=== PATIENT | female | born 1990 | race Hispanic/Latino ===

== ENCOUNTER 2022-05-19 21:56 | Emergency (ER) | payer SELFPAY ==
[2022-05-19] MEDS ORDERED: Ondansetron ODT 4 MG TAB ONE (22:47)
== END 2022-05-19 23:07 | disposition home or self-care (01) ==
LOC: MADERS 21:56
DX: O99.512 Diseases of the respiratory system complicating pregnancy, second trimester (principal); J20.9 Acute bronchitis, unspecified; J06.9 Acute upper respiratory infection, unspecified; O99.891 Other specified diseases and conditions complicating pregnancy; R11.0 Nausea; Z3A.18 18 weeks gestation of pregnancy
CPT/HCPCS: 99283; Q0162

== ENCOUNTER 2022-07-25 00:47 | Emergency (ER) | payer SELFPAY ==
[2022-07-25 01:35] LABS: Bilirubin Negative (Negative); Blood, Urine Small (Negative); Clarity Cloudy (Clear); Glucose, Urine (Dipstick) Negative (Negative); Ketone, Urine 15 mg/dL (Negative); Leukocyte Large (Negative); Nitrite Positive (Negative); Protein, Urine (Dipstick) 100 mg/dL (Neg-Trace); Urobilinogen 0.2 mg/dL (Less than 2); pH, Urine 6.5 (5.0-9.0)
[2022-07-25 01:42] LABS: Bacteria/HPF 2+ HPF (None Seen); RBC/HPF 21-50 HPF (0-3); WBC/HPF Greater Than 50 HPF (0-3)
[2022-07-25] MEDS ORDERED: Morphine 4 MG/ML VIAL ONE (01:50)
[2022-07-25] MEDS ORDERED: Sodium Chloride 0.9% 1,000 ML ONE ×3 (01:50→04:55)
[2022-07-25 01:53] LABS: #Basophils 0.1 thou/uL (0.0-0.2); #Eosinphils 0.1 thou/uL (0.0-0.7); #Lymphocytes 1.7 thou/uL (1.20-3.40); #Monocytes 0.9 thou/uL (0.11-0.59); %Basophils 0.7 % (0.0-1.0); %Eosinophils 0.8 % (0.0-10.0); %Lymphocytes 12.3 % (21.0-51.0); %Monocytes 6.2 % (0.0-10.0); Hemoglobin 10.4 g/dL (12.0-16.0); Mean Corpuscular HGB CONC 32.1 g/dL (32.0-36.0); Mean Corpuscular Hemoglobin 25.7 pg (27.0-31.0); Mean Corpuscular Volume 79.9 fl (78.0-98.0); Mean Platelet Volume 8.3 fL (7.4-10.4); Platelet Count 257 thou/uL (130-400); RBC Distribution Width 13.9 % (11.5-14.5); Red Blood Cell (RBC) Count 4.07 mill/uL (4.20-5.40); White Blood Cell (WBC) Count 13.8 thou/uL (4.8-10.8)
[2022-07-25 02:11] LABS: ALT (SGPT) 38 U/L (8-55); AST (SGOT) 43 U/L (5-34); Albumin 3.4 g/dL (3.5-5.0); Alkaline Phosphatase 167 U/L (40-110); Anion Gap 13 mmol/L (10-20); BUN (Urea Nitrogen) 6 mg/dL (7.0-18.7); Bilirubin, Total 0.4 mg/dL (0.2-1.2); Calc. Creatinine Clearance 0 mL/min (70-130); Calcium 8.8 mg/dL (7.8-10.44); Carbon Dioxide 17 mmol/L (22-29); Chloride 109 mmol/L (98-107); Estimated GFR 124; Globulin 3.6 g/dL (2.4-3.5); Glucose 105 mg/dL (70-105); Lipase 32 U/L (8-78); Potassium 3.3 mmol/L (3.5-5.1); Sodium 136 mmol/L (136-145)
[2022-07-25] MEDS ORDERED: cefTRIAXone\\ROCEPHIN 1 GM VIAL ONE (02:24)
[2022-07-25] MEDS ORDERED: Sodium Chloride 0.9% 100 ML ONE (02:25)
[2022-07-25] MEDS ORDERED: Acetaminophen 500 MG TAB ONE (04:55)
== END 2022-07-25 05:11 | disposition short-term general hospital (02) ==
LOC: MADERS 00:47
DX: O98.812 Other maternal infectious and parasitic diseases complicating pregnancy, second trimester (principal); A41.9 Sepsis, unspecified organism; O23.42 Unspecified infection of urinary tract in pregnancy, second trimester; Z3A.27 27 weeks gestation of pregnancy
CPT/HCPCS: 80053; 81003; 81015; 83605; 83690; 85025; 87040; 96365; 96375; J0696; J2270; J3490; J7050

== ENCOUNTER 2023-08-29 00:56 | Emergency (ER) | payer SELFPAY ==
[2023-08-29 02:11] LABS: Pregnancy Test - Urine (BHCG) Negative (Negative); Pregu Control Background? CLEAR/WHITE (CLR/WHITE); Pregu Control Bar Appear? YES (CONTROL BAR)
[2023-08-29 02:15] LABS: Bilirubin Small (Negative); Blood, Urine Negative (Negative); Clarity Clear (Clear); Glucose, Urine (Dipstick) Negative (Negative); Ketone, Urine 15 mg/dL (Negative); Leukocyte Negative (Negative); Nitrite Negative (Negative); Protein, Urine (Dipstick) 30 mg/dL (Neg-Trace); Specific Gravity, Urine 1.025 (1.005-1.030); Urobilinogen 0.2 mg/dL (Less than 2)
[2023-08-29 02:18] LABS: Bacteria/HPF Rare-Few HPF (None Seen); CAUTI Indications for Culture Dysuria,urgency,freq; RBC/HPF None Seen HPF (0-3); Urine Culture Reflex No No; WBC/HPF 0-3 HPF (0-3)
[2023-08-29] MEDS ORDERED: predniSONE 10 MG TAB ONE (02:37)
[2023-08-29] MEDS ORDERED: Ipratropium/Albuterol 3 ML NEB ONE (02:37)
[2023-08-29] MEDS ORDERED: predniSONE 20 MG TAB ONE (02:37)
[2023-08-29] MEDS ORDERED: Sodium Chloride 0.9% 1,000 ML BAG ONE (05:34)
== END 2023-08-29 05:40 | disposition home or self-care (01) ==
LOC: MADERS 00:56
DX: J06.9 Acute upper respiratory infection, unspecified (principal)
CPT/HCPCS: 71045; 81001; 81025; 87081; 87430; 96360; J7050; J7512; J7620

== ENCOUNTER 2024-06-10 02:39 | Emergency (ER) | payer OTHER, SELFPAY | END 2024-06-10 03:32 | disposition home or self-care (01) | LOC: MADERS 02:39 | DX: L29.9 Pruritus, unspecified (principal); H92.03 Otalgia, bilateral | CPT/HCPCS: 99282 ==

== ENCOUNTER 2024-09-27 07:26 | Emergency (ER) | payer SELFPAY ==
[2024-09-27 08:23] LABS: ALT (SGPT) 9 U/L (8-55); AST (SGOT) 16 U/L (5-34); Albumin 3.2 g/dL (3.5-5.0); Alkaline Phosphatase 103 U/L (40-110); Anion Gap 14 mmol/L (10-20); BUN (Urea Nitrogen) 6 mg/dL (7.0-18.7); Bilirubin, Total 0.7 mg/dL (0.2-1.2); Calc. Creatinine Clearance 0 mL/min (70-130); Calcium 9.9 mg/dL (7.8-10.44); Carbon Dioxide 21 mmol/L (22-29); Chloride 107 mmol/L (98-107); Estimated GFR 117; Globulin 4.7 g/dL (2.4-3.5); Glucose 117 mg/dL (70-105); Potassium 3.6 mmol/L (3.5-5.1); Protein, Total 7.9 g/dL (6.0-8.3); Sodium 138 mmol/L (136-145)
[2024-09-27 08:27] LABS: Hematocrit 39.2 % (36.0-47.0); Hemoglobin 12.8 g/dL (12.0-16.0); Mean Corpuscular HGB CONC 32.7 g/dL (32.0-36.0); Mean Corpuscular Hemoglobin 29.4 pg (27.0-31.0); Mean Corpuscular Volume 89.9 fl (78.0-98.0); Mean Platelet Volume 9.4 fL (7.4-10.4); Platelet Count 229 10x3/uL (130-400); RBC Distribution Width 12.6 % (11.5-14.5); Red Blood Cell (RBC) Count 4.36 mill/uL (4.20-5.40)
[2024-09-27 08:33] LABS: Band 2 % (5-11); Lymphocytes 8 % (21-51); MDiff Complete? YES; Manual Diff?? YES; Monocytes 3 % (0-10); Neutrophil 83 % (42-75); Reactive Lymphocytes 4 % (0-10)
[2024-09-27 08:34] LABS: Platelet Adequacy Comment Appears Adequate
[2024-09-27 08:37] LABS: Bilirubin Negative (Negative); Blood, Urine Small (Negative); Clarity Turbid (Clear); Glucose, Urine (Dipstick) Negative (Negative); Ketone, Urine Trace mg/dL (Negative); Leukocyte Large (Negative); Nitrite Positive (Negative); Protein, Urine (Dipstick) 30 mg/dL (Neg-Trace); Urobilinogen 0.2 mg/dL (Less than 2); pH, Urine 6.5 (5.0-9.0)
[2024-09-27 08:43] LABS: Bacteria/HPF 2+ HPF (None Seen); CAUTI Indications for Culture Pregnancy; RBC/HPF 21-50 HPF (0-3); Squamous Epithelial 0-3 HPF (0-3); WBC/HPF Greater than 50 HPF (0-3)
[2024-09-27 08:44] LABS: Urine Culture Reflex Yes Yes
[2024-09-27] MEDS ORDERED: Sodium Chloride 0.9% 100 ML ONE ×2 (08:49→15:36)
[2024-09-27] MEDS ORDERED: cefTRIAXone (ROCEPHIN) 1 GM VIAL ONE (08:49)
[2024-09-27] MEDS ORDERED: Acetaminophen 500 MG TAB ONE ×2 (09:28→13:41)
[2024-09-27] MEDS ORDERED: NOREPINEPHRINE 8 MG/250 ML-D5W 250 ML ONE (14:12)
[2024-09-27] MEDS ORDERED: metroNIDAZOLE 500 MG (100 mL) BAG ONE (15:36)
[2024-09-27] MEDS ORDERED: Vancomycin HCl 500 MG VIAL ONE (15:36)
[2024-09-27] MEDS ORDERED: Vancomycin 1 GM VIAL ONE (15:36)
[2024-09-27] MEDS ORDERED: CEFAZOLIN 2 GM VIAL ONE (15:36)
== END 2024-09-27 18:16 | disposition short-term general hospital (02) ==
LOC: MADERS 07:26
DX: O23.02 Infections of kidney in pregnancy, second trimester (principal); Z3A.20 20 weeks gestation of pregnancy
CPT/HCPCS: 36416; 80053; 81001; 83605; 85025; 87040; 87077; 87086; 87186; 87428; 93005; 96374; 96375; 36415-59; J0696; J3370